=== PATIENT | female | born 1955 | race Caucasian/White ===

== ENCOUNTER 2017-07-07 19:21 | Emergency (ER) | payer BC ==
[~2017-07-07] VITALS: Ht 165.1 cm; Wt 73.6 kg
[~2017-07-07 19:21] MED LIST: ACIPHEX20 MG; ACIPHEX20 MG PO; ALLEGRA180 MG PO; BONIVA150 MG PO; CALCIUM600 MG PO; CIPROFLOXACN500 MG PO; CLARITIN10 M1 OR; CRANBERRY250 MG OR; DILANTIN100 MG PO; FOSAMAX PLUS PO; LACTAID OR; MIRALAX3350 NF PO; MYLICON80 MG OR; NAPROSYN500 MG PO; OMEPRAZOLE10 MG PO; PROTONIX40 MG OR; SIMVASTATIN20 MG PO; STOOL SOFTE1 PO; TRAMADOL HCL50 MG OR; ULTRAM50 M1 PO; VITAMIN D31000 UNI1 PO
[2017-07-07 20:46] LABS: URINE BILIRUBIN - DIPSTICK NEGATIVE (NEGATIVE); URINE BLOOD DIPSTICK LARGE (NEGATIVE); URINE COLOR YELLOW; URINE GLUCOSE - DIPSTICK NEGATIVE (NEGATIVE); URINE KETONE NEGATIVE (NEGATIVE); URINE LEUK ESTERASE TRACE (NEGATIVE); URINE NITRITE - DIPSTICK NEGATIVE (Negative); URINE PROTEIN - DIPSTICK NEGATIVE (NEG-TRACE); URINE UROBILINOGEN - DIPSTICK 0.2 E.U./dL (0.2)
[2017-07-07 20:47] LABS: URINE CLARITY CLEAR; URINE RBC TNTC RBC/hpf (0-5); URINE SQUAMOUS EPITHELIAL CELL FEW EPI/hpf (0-FEW)
[2017-07-07] MEDS ORDERED: CIPROFLOXACN500 MG PO (20:51)
[2017-07-07] MEDS ORDERED: PYRIDIUM200 MG PO (20:51)
[2017-07-07 21:00] VITALS: BP 145/87
== END 2017-07-07 21:00 | disposition home or self-care (01) | DRG 690 ==
LOC: ED 19:21
PROVIDERS: Emergency Medicine
DX: N30.90 Cystitis, unspecified without hematuria (principal); G40.909 Epilepsy, unspecified, not intractable, without status epilepticus; H40.9 Unspecified glaucoma; I34.1 Nonrheumatic mitral (valve) prolapse; M81.0 Age-related osteoporosis without current pathological fracture; Z87.440 Personal history of urinary (tract) infections

== ENCOUNTER 2018-04-14 19:55 | Emergency (ER) | payer OTHER ==
[~2018-04-14] VITALS: Ht 165.1 cm; Wt 79.4 kg
[~2018-04-14 19:55] MED LIST changes: +PYRIDIUM200 MG PO
[2018-04-14] MEDS ORDERED: CELEBREX100 M1 PO (20:31)
[2018-04-14] MEDS ORDERED: LATANOPROST0.005 % OU (20:32)
[2018-04-14] MEDS ORDERED: TIMOLOL 0.5%5 ML OD (20:33)
[2018-04-14] MEDS ORDERED: LINZESS145 MCG PO (20:34)
[2018-04-14 21:21] LABS: HEMATOCRIT 37.4 % (37.0-47.0); HEMOGLOBIN 12.5 g/dl (12.0-16.0); IMMATURE GRANULOCYTES 0.4 % (0.0-5.0); MEAN CELL VOLUME 93.3 fL CALC (80.0-100.0); MEAN CORPUSCULAR HGB 31.2 pG CALC (26.0-32.0); MEAN CORPUSCULAR HGB CONC 33.4 g/L CALC (32.0-36.0); NEUT# 4.96 thou/uL (2.00-7.15); RED BLOOD COUNT 4.01 mill/uL (4.20-5.60); RED CELL DISTRI WIDTH 13.3 % (11.5-15.5)
[2018-04-14 21:22] LABS: URINE BILIRUBIN - DIPSTICK NEGATIVE (NEGATIVE); URINE BLOOD DIPSTICK MODERATE (NEGATIVE); URINE COLOR YELLOW; URINE GLUCOSE - DIPSTICK NEGATIVE (NEGATIVE); URINE KETONE NEGATIVE (NEGATIVE); URINE LEUK ESTERASE NEGATIVE (NEGATIVE); URINE NITRITE - DIPSTICK NEGATIVE (Negative); URINE PROTEIN - DIPSTICK NEGATIVE (NEG-TRACE); URINE SPECIFIC GRAVITY <=1.005; URINE UROBILINOGEN - DIPSTICK 0.2 E.U./dL (0.2)
[2018-04-14 21:36] LABS: ALBUMIN 4.2 g/dL (3.2-5.0); ALKALINE PHOSPHATASE 150 u/l (38-126); AMYLASE 110 u/l (30-110); ANION GAP 14 (6-22 (CALC)); BILIRUBIN, TOTAL 0.5 mg/dL (0.0-1.4); BUN 13 mg/dL (8-23); BUN/CREATININE RATIO 19 (12-20 (CALC)); CARBON DIOXIDE 24 mmol/l (22-30); CHLORIDE 108 mmol/l (95-108); CREATININE 0.7 mg/dL (0.5-1.0); GFR > 60 ML/MIN (>=60 (CALC)); GFR FOR AFR.AMER. > 60 ML/MIN (>=60 (CALC)); LIPASE 426 u/l (23-300); POTASSIUM 3.2 mmol/l (3.5-5.1); SGOT/AST 25 u/l (9-36); SODIUM 143 mmol/l (137-146); TOTAL PROTEIN 7.1 g/dL (6.3-8.2)
[2018-04-14 21:51] LABS: URINE SQUAMOUS EPITHELIAL CELL FEW EPI/hpf (0-FEW)
[2018-04-14] MEDS ORDERED: PHENERGAN25 MG/TAB PO (23:00)
[2018-04-14 23:30] VITALS: BP 173/86
== END 2018-04-14 23:30 | disposition home or self-care (01) | DRG 440 ==
LOC: ED 19:55
PROVIDERS: Family Medicine
DX: K85.90 Acute pancreatitis without necrosis or infection, unspecified (principal); K59.00 Constipation, unspecified; G40.909 Epilepsy, unspecified, not intractable, without status epilepticus

== ENCOUNTER 2019-04-25 | Emergency (ER) | payer OTHER ==
[~2019-04-25] MED LIST changes: +CELEBREX100 M1 PO; +LATANOPROST0.005 % OU; +LINZESS145 MCG PO; +PHENERGAN25 MG/TAB PO; +TIMOLOL 0.5%5 ML OD
[2019-04-25] MEDS ORDERED: LASIX 20 MG TAB20 MG PO (20:43)
[2019-04-25] MEDS ORDERED: K-TAB20 MEQ PO (20:44)
== END 2019-04-25 21:31 | disposition home or self-care (01) | DRG 395 ==
DX: T18.198A Other foreign object in esophagus causing other injury, initial encounter (principal); G40.909 Epilepsy, unspecified, not intractable, without status epilepticus; X58.XXXA Exposure to other specified factors, initial encounter

== ENCOUNTER 2019-06-02 | Emergency (ER) | payer OTHER ==
[~2019-06-02] MED LIST changes: +K-TAB20 MEQ PO; +LASIX 20 MG TAB20 MG PO
[2019-06-02] MEDS ORDERED: LINZESS145 MCG PO (18:10)
[2019-06-02] MEDS ORDERED: DILANTIN100 MG PO ×2 (18:12→18:13)
[2019-06-02] MEDS ORDERED: TAM75CAP PO (19:49)
[2019-06-02] MEDS ORDERED: TESSALON PER100 MG PO (19:55)
== END 2019-06-02 20:02 | disposition home or self-care (01) | DRG 195 ==
DX: J10.1 Influenza due to other identified influenza virus with other respiratory manifestations (principal)

== ENCOUNTER 2020-07-24 19:27 | Emergency (ER) | payer MEDICARE ==
[~2020-07-24 19:27] MED LIST changes: +TAM75CAP PO; +TESSALON PER100 MG PO
[2020-07-24] MEDS ORDERED: MOTRIN400 MG/TAB PO (22:51)
[2020-07-24 23:25] VITALS: BP 120/74
[2020-07-27] MEDS ORDERED: MIRALAX17 GM (09:02)
[2020-07-27] MEDS ORDERED: ALENDRONATE SOD70 MG PO (09:03)
[2020-07-27] MEDS ORDERED: LATANOPROST0.005 % OP (09:03)
== END 2020-07-24 23:25 | disposition home or self-care (01) ==
LOC: ED 19:27
DX: M79.672 Pain in left foot (principal); M19.90 Unspecified osteoarthritis, unspecified site; M81.0 Age-related osteoporosis without current pathological fracture; G40.909 Epilepsy, unspecified, not intractable, without status epilepticus; I34.1 Nonrheumatic mitral (valve) prolapse; K21.9 Gastro-esophageal reflux disease without esophagitis

== ENCOUNTER 2021-10-10 10:12 | Emergency (ER) | payer MEDICARE ==
[~2021-10-10] VITALS: Ht 165.1 cm; Wt 77.0 kg
[2021-10-10] VITALS (9 sets, daily range): BP systolic 117–159; BP diastolic 60–102
[~2021-10-10 10:12] MED LIST changes: +ALENDRONATE SOD70 MG PO; +LATANOPROST0.005 % OP; +MIRALAX17 GM; +MOTRIN400 MG/TAB PO
[2021-10-10 12:09] LABS: HEMATOCRIT 38.3 % (37.0-47.0); HEMOGLOBIN 12.7 g/dl (12.0-16.0); IMMATURE GRANULOCYTES 0.3 % (0.0-5.0); MEAN CELL VOLUME 94.6 fL CALC (80.0-100.0); MEAN CORPUSCULAR HGB 31.4 pG CALC (26.0-32.0); MEAN CORPUSCULAR HGB CONC 33.2 g/dL CAL (32.0-36.0); NEUT# 3.99 thou/uL (2.00-7.15); RED BLOOD COUNT 4.05 mill/uL (4.20-5.60); RED CELL DISTRI WIDTH 13.1 % (11.5-15.5)
[2021-10-10 12:39] LABS: ALBUMIN 4.1 g/dL (3.2-5.0); ALKALINE PHOSPHATASE 161 u/l (38-126); ANION GAP 9 (6-22 (CALC)); BILIRUBIN, TOTAL 0.3 mg/dL (0.0-1.4); BUN 12 mg/dL (8-23); BUN/CREATININE RATIO 20 (12-20 (CALC)); CARBON DIOXIDE 28 mmol/l (22-30); CHLORIDE 109 mmol/l (95-108); CREATININE 0.6 mg/dL (0.5-1.0); GFR FOR AFR.AMER. > 60 ML/MIN (>=60 (CALC)); GFR OTHER RACES > 60 ML/MIN (>=60 (CALC)); POTASSIUM 3.5 mmol/l (3.5-5.1); SGOT/AST 20 u/l (9-36); SODIUM 142 mmol/l (137-146); TOTAL PROTEIN 6.8 g/dL (6.3-8.2)
[2021-10-10] MEDS ORDERED: ULTRAM50 M1 PO ×2 (13:26→14:30)
== END 2021-10-10 14:05 | disposition home or self-care (01) ==
LOC: ED 10:12
PROVIDERS: Emergency Medicine
DX: M79.10 Myalgia, unspecified site (principal); I10 Essential (primary) hypertension; G40.909 Epilepsy, unspecified, not intractable, without status epilepticus; E78.00 Pure hypercholesterolemia, unspecified; K21.9 Gastro-esophageal reflux disease without esophagitis